=== PATIENT | male | born 1980 | race African-American/Black ===

== ENCOUNTER 2017-07-26 00:25 | Emergency (ER) | payer MEDICAID, OTHER ==
[~2017-07-26] VITALS: Ht 180.3 cm; Wt 77.2 kg
[2017-07-26] MEDS ORDERED: LIDOCAINE-MPF 1%, 5ML INFIL ONE (01:00)
[2017-07-26] MEDS ORDERED: BACITRACIN ZINC OINT 500U/GM, 0.9 GM ONE (01:10)
[2017-07-26 01:23] VITALS: BP 131/79
== END 2017-07-26 01:26 | disposition home or self-care (01) ==
LOC: ED 01:23
DX: S61.411A Laceration without foreign body of right hand, initial encounter (principal); W45.8XXA Other foreign body or object entering through skin, initial encounter; Y93.89 Activity, other specified; Y92.89 Other specified places as the place of occurrence of the external cause; Y99.8 Other external cause status
CPT/HCPCS: 12002; 99283

== ENCOUNTER 2020-06-13 08:57 | Emergency (ER) | payer SELFPAY ==
[~2020-06-13] VITALS: Ht 180.3 cm; Wt 79.7 kg
[2020-06-13 09:24] VITALS: BP 108/75
--- NOTE | 2020-06-13 09:50 | NUR ---
[email or web address]
--- NOTE | 2020-06-13 10:20 | NUR ---
nil x2
--- NOTE | 2020-06-13 10:45 | NUR ---
[email or web address]
== END 2020-06-13 09:35 | disposition left against medical advice (07) ==
LOC: ED 09:30
DX: K08.89 Other specified disorders of teeth and supporting structures (principal); Z53.21 Procedure and treatment not carried out due to patient leaving prior to being seen by health care provider